=== PATIENT | female | born 1985 | race Caucasian/White ===

== ENCOUNTER 2016-11-23 06:13 | Emergency (ER) | payer MEDICAID ==
[2016-11-23] MEDS ORDERED: Sodium Chloride 0.9% 1,000 ML IV ONE (06:19)
[2016-11-23] MEDS ORDERED: HYDROmorphone 1 MG/ML Syringe IVPUSH ONE ×3 (06:23→08:26)
[2016-11-23] MEDS ORDERED: Ondansetron 4 MG/2 ML SDV IV ONE ×2 (06:28→08:27)
--- NOTE | 2016-11-23 06:30 | EDM.PDOC ---
<Aurea Gaspar - Last Filed: 11/23/16 06:41> ED HPI GENERAL MEDICAL PROBLEM - General Chief Complaint: Abdominal Pain Stated Complaint: SEVERE ABD PAIN, VOMITING Time Seen by Provider: 11/23/16 06:15 Source of Information: Reports: Patient History Limitations: Reports: No Limitations - History of Present Illness INITIAL COMMENTS - FREE TEXT/NARRATIVE: c/o severe RLQ pain starting at 10pm. Has had vomiting and diarrhea. pain similar to when had ruptured cyst also on right Duration: Hour(s): Location: Reports: Abdomen, Pelvis Right Lower Abdomen Pain Score (Numeric/FACES): 9 - Related Data Allergies Allergy/AdvReac Type Severity Reaction Status Date / Time codeine Allergy Nausea and Verified 11/23/16 06:26 Vomiting morphine Allergy Rash Verified 11/23/16 06:26 Home Meds: Home Meds ALPRAZolam [Xanax] 0.25 mg PO BID 09/01/15 [History] Acetaminophen/oxyCODONE [Percocet 325-5 MG] 1 tab PO ASDIRECTED 09/01/15 [ History] Past Medical History Cardiovascular History: Reports: Angina [employer] History: Reports: Musculoskeletal History: Reports: Back Pain, Chronic Psychiatric History: Reports: Bipolar, Depression, Other (See Below) Other Psychiatric History: insomtic Social & Family History - Family History Family Medical History: Noncontributory - Tobacco Use Smoking Status *Q: Former Smoker Years of Tobacco use: 10 Packs/Tins Daily: 1 Used Tobacco, but Quit: Yes Month Tobacco Last Used: 03/03 Second Hand Smoke Exposure: No - Alcohol Use Days Per Week of Alcohol Use: 0 - Recreational Drug Use Recreational Drug Use: No Drug Use in Last 12 Months: Yes Recreational Drug Type: Reports: Marijuana/Hashish - Living Situation & Occupation Living situation: Reports: , with Family ED ROS GENERAL - Review of Systems Review Of Systems: See Below HEENT: Reports: No Symptoms Respiratory: Reports: No Symptoms Cardiovascular: Reports: No Symptoms GI/Abdominal: Reports: Abdominal Pain, Diarrhea, Nausea, Vomiting : Reports: No Symptoms Musculoskeletal: Reports: No Symptoms Skin: Reports: No Symptoms Neurological: Reports: No Symptoms Psychiatric: Reports: No Symptoms Hematologic/Lymphatic: Reports: No Symptoms Immunologic: Reports: No Symptoms ED EXAM, GI/ABD - Physical Exam Exam: See Below Exam Limited By: No Limitations General Appearance: Alert, Moderate Distress Eyes: Bilateral: Normal Appearance Ears: Normal External Exam, Normal Canal Nose: Normal Inspection Throat/Mouth: Normal Inspection, Normal Oropharynx Head: Atraumatic, Normocephalic Neck: Normal Inspection, Supple, Full Range of Motion Respiratory/Chest: No Respiratory Distress, Lungs Clear, Normal Breath Sounds Cardiovascular: Normal Peripheral Pulses, Regular Rate, Rhythm, No Edema GI/Abdominal Exam: Normal Bowel Sounds, Soft, Non-Tender, Pelvis Stable, Tender (RLQ). No: Rebound Back Exam: Normal Inspection, Full Range of Motion Extremities: Normal Inspection, Normal Range of Motion Neurological: Alert, Oriented, CN II-XII Intact, Normal Cognition, Normal Gait Psychiatric: Normal Affect Skin Exam: Warm, Dry, Intact, Normal Color, No Rash, Cool Course - Vital Signs Last Recorded V/S: Last Vital Signs Temp 36.6 C 11/23/16 08:05 Pulse 114 H 11/23/16 08:05 Resp 16 11/23/16 08:05 BP 148/89 H 11/23/16 08:05 Pulse Ox 99 11/23/16 08:05 - Orders/Labs/Meds Orders: Active Orders 24 hr Category Date Time Status Dicyclomine [Bentyl] Med 11/23/16 08:26 Once 20 mg IM ONETIME ONE HYDROmorphone [Dilaudid] Med 11/23/16 08:26 Once 1 mg IVPUSH ONETIME ONE Ondansetron [Zofran] Med 11/23/16 08:27 Once 4 mg IV ONETIME ONE Labs: Laboratory Tests 11/23/16 11/23/16 11/23/16 Range/Units 06:20 06:20 06:20 WBC 12.5 H (5.0-10.0) 10^3/uL RBC 4.69 (4.2-5.4) 10^6/uL Hgb 14.9 (12.0-16.0) g/dL Hct 44.1 (37.0-47.0) % MCV 94.0 (80-100) fL MCH 31.8 (27.0-34.0) pg MCHC 33.8 (33.0-35.0) g/dL Plt Count 278 (150-450) 10^3/uL Neut % (Auto) 82.4 H (42.2-75.2) % Lymph % (Auto) 10.4 L (20.5-50.1) % [place] % (Auto) 5.6 (2-8) % Eos % (Auto) 1.4 (1.0-3.0) % Baso % (Auto) 0.2 (0.0-1.0) % Sodium 139 (135-145) mmol/L Potassium 3.6 (3.6-5.0) mmol/L Chloride 108 (101-111) mmol/L Carbon Dioxide 17.0 L (21.0-31.0) mmol/L Anion Gap 17.6 BUN 16 (7-18) mg/dL Creatinine 0.7 (0.6-1.3) mg/dL Est Cr Clr Drug Dosing TNP Estimated GFR (MDRD) > 60 BUN/Creatinine Ratio 22.85 Glucose 109 H (74-105) mg/dL Calcium 9.5 (8.4-10.2) mg/dl Total Bilirubin 1.7 H (0.2-1.0) mg/dL AST 20 (10-42) IU/L ALT 14 (10-60) IU/L Alkaline Phosphatase 59 (42-121) IU/L C-Reactive Protein < 0.5 (0.0-1.3) mg/dL Total Protein 8.3 H (6.7-8.2) g/dl Albumin 4.9 (3.2-5.5) g/dl Globulin 3.4 Albumin/Globulin Ratio 1.44 Amylase 48 (28-100) U/L Lipase 27 (22-51) U/L HCG, Qual Negative Urine Color (YELLOW) Urine Appearance (CLEAR) Urine pH (5.0-9.0) Ur Specific [place] (1.005-1.030) Urine Protein (NEGATIVE) Urine Glucose (UA) (NEGATIVE) Urine Ketones (NEGATIVE) Urine Occult Blood (NEGATIVE) Urine Nitrite (NEGATIVE) Urine Bilirubin (NEGATIVE) Urine Urobilinogen (0.2-1.0) mg/dL Ur Leukocyte Esterase (NEGATIVE) Urine RBC /HPF Urine WBC (0-5/HPF) /HPF Ur Epithelial Cells /HPF Urine Bacteria (0-FEW/HPF) /HPF Urine Mucus /LPF 11/23/16 Range/Units 07:00 WBC (5.0-10.0) 10^3/uL RBC (4.2-5.4) 10^6/uL Hgb (12.0-16.0) g/dL Hct (37.0-47.0) % MCV (80-100) fL MCH (27.0-34.0) pg MCHC (33.0-35.0) g/dL Plt Count (150-450) 10^3/uL Neut % (Auto) (42.2-75.2) % Lymph % (Auto) (20.5-50.1) % [place] % (Auto) (2-8) % Eos % (Auto) (1.0-3.0) % Baso % (Auto) (0.0-1.0) % Sodium (135-145) mmol/L Potassium (3.6-5.0) mmol/L Chloride (101-111) mmol/L Carbon Dioxide (21.0-31.0) mmol/L Anion Gap BUN (7-18) mg/dL Creatinine (0.6-1.3) mg/dL Est Cr Clr Drug Dosing Estimated GFR (MDRD) BUN/Creatinine Ratio Glucose (74-105) mg/dL Calcium (8.4-10.2) mg/dl Total Bilirubin (0.2-1.0) mg/dL AST (10-42) IU/L ALT (10-60) IU/L Alkaline Phosphatase (42-121) IU/L C-Reactive Protein (0.0-1.3) mg/dL Total Protein (6.7-8.2) g/dl Albumin (3.2-5.5) g/dl Globulin Albumin/Globulin Ratio Amylase (28-100) U/L Lipase (22-51) U/L HCG, Qual Urine Color Yellow (YELLOW) Urine Appearance Clear (CLEAR) Urine pH 5.5 (5.0-9.0) Ur Specific [place] <= 1.005 (1.005-1.030) Urine Protein Negative (NEGATIVE) Urine Glucose (UA) Negative (NEGATIVE) Urine Ketones Negative (NEGATIVE) Urine Occult Blood Trace-lysed H (NEGATIVE) Urine Nitrite Negative (NEGATIVE) Urine Bilirubin Negative (NEGATIVE) Urine Urobilinogen 0.2 (0.2-1.0) mg/dL Ur Leukocyte Esterase Negative (NEGATIVE) Urine RBC 0-5 /HPF Urine WBC 0-5 (0-5/HPF) /HPF Ur Epithelial Cells Occasional /HPF Urine Bacteria Rare (0-FEW/HPF) /HPF Urine Mucus Not seen /LPF Meds: Medications Discontinued Medications Generic Name Dose Route Start Last Admin Trade Name Tiffany PRN Reason Stop Dose Admin Hydromorphone HCl 1 mg 11/23/16 06:23 11/23/16 06:26 Dilaudid IVPUSH 11/23/16 06:24 1 mg ONETIME ONE Administration Hydromorphone HCl 1 mg 11/23/16 06:40 11/23/16 06:54 Dilaudid IVPUSH 11/23/16 06:41 1 mg ONETIME ONE Administration Sodium Chloride 1,000 mls @ 999 mls/hr 11/23/16 06:19 11/23/16 06:26 Normal Saline IV 11/23/16 07:19 999 mls/hr .BOLUS ONE Administration Iopamidol 75 ml 11/23/16 06:39 Isovue-300 (61%) IVPUSH 11/23/16 06:40 ONETIME ONE Ondansetron HCl 4 mg 11/23/16 06:28 11/23/16 06:31 Zofran IV 11/23/16 06:29 4 mg ONETIME ONE Administration Departure - Departure Disposition: Home, Self-Care 01 Clinical Impression: Gastroenteritis Abdominal pain Qualifiers: Abdominal location: lower abdomen, unspecified Qualified Code(s): R10.30 - Lower abdominal pain, unspecified - Discharge Information Instructions: Viral Gastroenteritis, Adult, [id number] Forms: ED Department Discharge Additional Instructions: Clear liquid diet until nausea and vomiting resolve, then advance to soft bland diet as tolerated. Rx: Phenergan 25mg *Do not drive while under the influence of this medication. Rx: Dicyclomine 20mg *Do not drive while under the influence of this medication. Follow up in clinic with your doctor if not improving in 3 days. - My Orders Last 24 Hours: My Active Orders 11/23/16 08:26 Dicyclomine [Bentyl] 20 mg IM ONETIME ONE HYDROmorphone [Dilaudid] 1 mg IVPUSH ONETIME ONE 11/23/16 08:27 Ondansetron [Zofran] 4 mg IV ONETIME ONE - Assessment/Plan Last 24 Hours: My Active Orders 11/23/16 08:26 Dicyclomine [Bentyl] 20 mg IM ONETIME ONE HYDROmorphone [Dilaudid] 1 mg IVPUSH ONETIME ONE 11/23/16 08:27 Ondansetron [Zofran] 4 mg IV ONETIME ONE <Venkat Limon - Last Filed: 11/23/16 08:33> ED HPI GENERAL MEDICAL PROBLEM - History of Present Illness INITIAL COMMENTS - FREE TEXT/NARRATIVE: Assumed care of pt at 0700HR shift change with CT Abd/Pelvis pending. ED EXAM, GI/ABD - Physical Exam Text/Narrative:: No changes to exam as documented by Aurea ALBARADO for this encounter. Course - Radiology Interpretation Free Text/Narrative:: CT Abd/Pelvis: gastroenteritis, no other acute process, incidental findings as noted by Rad. report. Departure - Departure Time of Disposition: 08:30 Condition: Fair
[2016-11-23] MEDS ORDERED: Iopamidol 612 MG/ML 75 ML Bottle IVPUSH ONE (06:39)
[2016-11-23 06:47] LABS: CHLORIDE,CL 108 mmol/L (101-111); SODIUM,NA 139 mmol/L (135-145)
[2016-11-23 08:05] VITALS: BP 148/89
--- NOTE | 2016-11-23 08:12 | CT ---
Clinical history: 31-year-old female "smoker" with history of previous , appendectomy and "r uptured ovarian cysts" who presents now with right lower quadrant pain. Scan technique: Volume acquisition of data emergency CT scan abdomen and pelvis obtained without oral contrast but during the intravenous administration of 75 cc nonionic Isovue contrast (3 cc/s via inj milad) while the patient was lying supine on a Siemens multi slice scanner [place], [place]. All data archived in the PACS system for storage, reformatting and study. Interpretation: 1. Collapsed (empty) urinary bladder. Normal uterus anteverted in the midline. No adnexal mass lesion s or free pelvic fluid. 2. Normal gallbladder i.e. no signs of wall inflammation or intraluminal stones. Several tiny benign-appearing cysts scattered throughout the course of the liver. No intrahepatic rupinder id mass lesion or abnormal dilatation of the intra/extrahepatic biliary ducts. 3. Fluid-filled loops of small intestine suggesting gastroenteritis. No abdominal or pelvic mass lesi on, retroperitoneal lymphadenopathy, signs of mechanical bowel obstruction, ascites or free intraperi toneal air. Normal caliber aorta. 4. Symmetric normal reniform size axis and configuration. No sign of renal cortical mass lesion, neph rolithiasis or obstruction. 5. Stomach, spleen, pancreas and adrenal glands unremarkable. Normal lumbar spine and bony pelvis. 6. Lung bases clear. CONCLUSION: Possible gastroenteritis. Tiny hepatic cysts. (Reported "appendectomy") Exam otherwise un remarkable.
[2016-11-23] MEDS ORDERED: Dicyclomine 20 MG/2 ML SDV IM ONE (08:26)
== END 2016-11-23 08:56 | disposition home or self-care (01) ==
LOC: DL.ED 06:13
DX: K52.9 Noninfective gastroenteritis and colitis, unspecified (principal); F31.9 Bipolar disorder, unspecified; Z87.891 Personal history of nicotine dependence; Z88.5 Allergy status to narcotic agent; Z79.899 Other long term (current) drug therapy
CPT/HCPCS: 36415; 74177; 80053; 81001; 82150; 83690; 84703; 85025; 86140; 96361; 96372; 96374; 96375; 96376; 99284; J0500; J1170; J2405; J7030; Q9967

== ENCOUNTER 2017-05-07 10:23 | Emergency (ER) | payer MEDICAID ==
--- NOTE | 2017-05-07 11:08 | EDM.PDOC ---
ED HPI GENERAL MEDICAL PROBLEM - General Chief Complaint: Back Pain or Injury Stated Complaint: IN BY AMBULANCE Time Seen by Provider: 05/07/17 11:07 Source of Information: Reports: Patient History Limitations: Reports: No Limitations - History of Present Illness INITIAL COMMENTS - FREE TEXT/NARRATIVE: patient is brought in by ambulance. She complains of acute onset of upper back pain with numbness bilateral hands. She indicates that she fell 2 weeks ago. Denies any recent fall the past couple days. Patient called EMS and was transferred here by ambulance. She complains of significant pain throughout her upper back. She complains of numbness to her entire upper extremity bilaterally. She denies chest pain shortness of breath. Denies fever chills or night sweats. Denies abdominal pain. Patient recently altered a prescription to obtain narcotics sooner than the date of the prescription Onset: Today, Sudden Duration: Hour(s):, Constant Quality: Reports: Ache, Sharp, Stabbing Severity: Severe Worsens with: Reports: Movement Back Pain Score (Numeric/FACES): 10 - Related Data Allergies Allergy/AdvReac Type Severity Reaction Status Date / Time codeine Allergy Nausea and Verified 05/07/17 10:17 Vomiting ketorolac [From Toradol] Allergy Hives Verified 05/07/17 10:17 morphine Allergy Rash Verified 05/07/17 10:17 pregabalin [From Lyrica] Allergy Hives Verified 05/07/17 10:17 Home Meds: Home Meds Acetaminophen/oxyCODONE [Percocet 325-5 MG] 1 tab PO Q6H 09/01/15 [History] Escitalopram [Lexapro] 10 mg PO BEDTIME 05/07/17 [History] Gabapentin [Neurontin] 300 mg PO TID 05/07/17 [History] clonazePAM [Klonopin] 0.25 mg PO BEDTIME 05/07/17 [History] Past Medical History Cardiovascular History: Reports: Angina [employer] History: Reports: Other OB/BYN History: Bilateral tubal ligation Musculoskeletal History: Reports: Back Pain, Chronic Other Musculoskeletal History: Spinal Stenosis Psychiatric History: Reports: Bipolar, Depression, Other (See Below) Other Psychiatric History: insomtic - Past Surgical History Musculoskeletal Surgical History: Reports: Other (See Below) Other Musculoskeletal Surgeries/Procedures:: Surgery to neck for fusion and removal of bone spur Social & Family History - Family History Family Medical History: Noncontributory - Tobacco Use Smoking Status *Q: Current Every Day Smoker Years of Tobacco use: 13 Packs/Tins Daily: 0.2 Used Tobacco, but Quit: Yes Month Tobacco Last Used: 03/03 Second Hand Smoke Exposure: No - Caffeine Use Caffeine Use: Reports: Soda - Alcohol Use Days Per Week of Alcohol Use: 0 - Recreational Drug Use Recreational Drug Use: No Drug Use in Last 12 Months: Yes Recreational Drug Type: Reports: Marijuana/Hashish - Living Situation & Occupation Living situation: Reports: , with Family ED ROS GENERAL - Review of Systems Review Of Systems: See Below Constitutional: Reports: Weakness. Denies: Diaphoresis HEENT: Reports: No Symptoms Respiratory: Reports: No Symptoms Cardiovascular: Reports: No Symptoms Endocrine: Reports: No Symptoms GI/Abdominal: Reports: No Symptoms : Reports: No Symptoms Musculoskeletal: Reports: Neck Pain, Shoulder Pain, Arm Pain, Back Pain, Hand Pain Skin: Reports: No Symptoms Neurological: Reports: Numbness, Paresthesia, Tingling Psychiatric: Reports: Anxiety Hematologic/Lymphatic: Reports: No Symptoms Immunologic: Reports: No Symptoms ED EXAM,LOWER BACK PAIN/INJURY - Physical Exam Exam: See Below Exam Limited By: No Limitations General Appearance: Anxious, Mild Distress Head: Atraumatic, Normocephalic Neck: Other (Right side cervical neck scar) Respiratory/Chest: No Respiratory Distress, Lungs Clear Cardiovascular: Normal Peripheral Pulses, No Edema Extremities: Other (Patient complains of weakness during the exam. She is unable to do a normal time checker bilateral extremity. She has some tenderness to palpation of the trapezius bilaterally. She complains of pain initiating biceps and triceps movement. Numbness to palpation fingers 1 through 5) Neurological: Alert, CN II-XII Intact, Other (Pain to palpation to the trapezius and cervical neck muscles. Limited rotation and flexion.) Psychiatric: Anxious, Tearful Skin Exam: Warm, Dry Lymphatic: No Adenopathy Course - Vital Signs Last Recorded V/S: Last Vital Signs Temp 98.6 F 05/07/17 10:21 Pulse 64 05/07/17 12:05 Resp 16 05/07/17 12:05 BP 94/51 L 05/07/17 12:05 Pulse Ox 100 05/07/17 12:05 - Orders/Labs/Meds Labs: Laboratory Tests 05/07/17 05/07/17 05/07/17 Range/Units 12:17 13:45 13:45 WBC 11.7 H (5.0-10.0) 10^3/uL RBC 3.76 L (4.2-5.4) 10^6/uL Hgb 11.9 L D (12.0-16.0) g/dL Hct 36.0 L (37.0-47.0) % MCV 95.7 (80-100) fL MCH 31.6 (27.0-34.0) pg MCHC 33.1 (33.0-35.0) g/dL Plt Count 240 (150-450) 10^3/uL Neut % (Auto) 68.8 (42.2-75.2) % Lymph % (Auto) 24.4 (20.5-50.1) % [place] % (Auto) 4.8 (2-8) % Eos % (Auto) 1.7 (1.0-3.0) % Baso % (Auto) 0.3 (0.0-1.0) % ESR 5 (0-20) mm/hr Urine Color Yellow (YELLOW) Urine Appearance Cloudy (CLEAR) Urine pH 7.0 (5.0-9.0) Ur Specific [place] 1.015 (1.005-1.030) Urine Protein Negative (NEGATIVE) Urine Glucose (UA) Negative (NEGATIVE) Urine Ketones Negative (NEGATIVE) Urine Occult Blood Negative (NEGATIVE) Urine Nitrite Negative (NEGATIVE) Urine Bilirubin Negative (NEGATIVE) Urine Urobilinogen 0.2 (0.2-1.0) mg/dL Ur Leukocyte Esterase Negative (NEGATIVE) Urine RBC 0-5 /HPF Urine WBC 0-5 (0-5/HPF) /HPF Ur Epithelial Cells Moderate H /HPF Amorphous Sediment Many H (0/HPF) /HPF Urine Bacteria Few (0-FEW/HPF) /HPF Urine Mucus Few H /LPF Urine Opiates Screen Negative (NEGATIVE) Ur Oxycodone Screen Negative (NEGATIVE) Urine Methadone Screen Negative (NEGATIVE) Ur Barbiturates Screen Negative (NEGATIVE) U Tricyclic Antidepress Negative (NEGATIVE) Ur Phencyclidine Scrn Negative (NEGATIVE) Ur Amphetamine Screen Negative (NEGATIVE) U Methamphetamines Scrn Negative (NEGATIVE) Urine MDMA Screen Negative (NEGATIVE) U Benzodiazepines Scrn Positive H (NEGATIVE) Urine Cocaine Screen Negative (NEGATIVE) U Marijuana (THC) Screen Positive H (NEGATIVE) Meds: Medications Discontinued Medications Generic Name Dose Route Start Last Admin Trade Name Tiffany JONES Reason Stop Dose Admin Diazepam 5 mg 05/07/17 11:08 05/07/17 11:29 Valium IV 05/07/17 11:09 5 mg ONETIME ONE Administration Hydromorphone HCl 1 mg 05/07/17 12:11 05/07/17 12:18 Dilaudid IVPUSH 05/07/17 12:12 1 mg ONETIME ONE Administration Sodium Chloride 1,000 mls @ 125 mls/hr 05/07/17 11:15 05/07/17 11:21 Normal Saline IV 125 mls/hr ASDIRECTED [facility] Administration - Re-Assessments/Exams Free Text/Narrative Re-Assessment/Exam: Lab work and imaging is reviewed. Discussed differential diagnosis. Reviewed myofascial pain and trigger points. Discussed nonnarcotic medication treatments in addition to other pain medications 05/07/17 14:03 Free Text/Narrative Re-Assessment/Exam: Reexamination shows trigger points to the cervical neck and trapezius. Palpating reproduces symptoms. She has muscle spasm to the trapezius and cervical neck 05/07/17 14:06 Departure - Departure Time of Disposition: 15:06 Disposition: Home, Self-Care 01 Condition: Good Clinical Impression: Cervical neck pain with evidence of disc disease, Intractable pain, Myofascial pain, Trigger point of neck, Muscle spasm Thoracic back pain Qualifiers: Chronicity: acute Back pain laterality: midline Qualified Code(s): M54.6 - Pain in thoracic spine - Discharge Information Instructions: Muscle Cramps and Spasms, [id number], Myofascial Pain Syndrome and Fibromyalgia, Muscle Pain, Adult, Musculoskeletal Pain, Pain Medicine Instructions, [id number] Forms: ED Department Discharge Care Plan Goals: Follow-up with regular provider in the next 1-2 weeks. Utilize heat to the neck. Consider Theracane to help with trigger points. Review myofascial pain and trigger points. Call or return if problems questions or concerns
[2017-05-07] MEDS ORDERED: Sodium Chloride 0.9% 1,000 ML IV SCH (11:15)
[2017-05-07 12:06] VITALS: BP 94/51
[2017-05-07] MEDS ORDERED: HYDROmorphone 1 MG/ML Syringe IVPUSH ONE (12:11)
--- NOTE | 2017-05-07 12:30 | CR ---
Clinical history: 31-year-old female in the emergency department with "neck pain". Interpretation: AP lateral cervical spine films confirm previous anterior orthopedic lower cervical s desiree fusion i.e. prosthetic intervertebral disc anchored with screws anteriorly, between the C5 and C6 vertebral bodies. Decreased height of the C6 vertebral body and reversal of the usual lower cervical lordosis. Early uncinate spur formation C5-6 and C6-C7 levels. No sign of pathologic skeletal lesion, prevertebral soft tissue swelling, acute cervical fracture or spondylolisthesis. CONCLUSION: Postoperative and early arthritic changes lower cervical spine. No fracture or dislocatio n.
== END 2017-05-07 14:16 | disposition home or self-care (01) ==
LOC: DL.ED 10:23
DX: M62.830 Muscle spasm of back (principal); M50.90 Cervical disc disorder, unspecified, unspecified cervical region; M79.1 Myalgia; F31.9 Bipolar disorder, unspecified; F17.210 Nicotine dependence, cigarettes, uncomplicated; Z98.1 Arthrodesis status; Z88.5 Allergy status to narcotic agent; Z88.6 Allergy status to analgesic agent; Z88.8 Allergy status to other drugs, medicaments and biological substances
CPT/HCPCS: 36415; 72040; 80305; 81001; 85025; 85651; 96361; 96374; 96375; 99284; J1170; J3360; J7030

== ENCOUNTER 2017-05-15 10:29 | Emergency (ER) | payer MEDICAID ==
--- NOTE | 2017-05-15 10:40 | EDM.PDOC ---
ED HPI GENERAL MEDICAL PROBLEM - General Chief Complaint: Neuro Symptoms/Deficits Stated Complaint: can't feel her arms [id number] Time Seen by Provider: 05/15/17 10:39 Source of Information: Reports: Patient, Old Records, RN, RN Notes Reviewed History Limitations: Reports: No Limitations - History of Present Illness INITIAL COMMENTS - FREE TEXT/NARRATIVE: Pt presents to the ER with c/o neck pain and numbness/tingling down both arms and states she is unable to move or grasp with her hands. Pt states she was seen here about 1 week ago and her treatment here helped her a lot. She states she is to be called at home tomorrow by Neurology in [place] to be set up with an appointment to see Dr. Koenig, whom she has seen in the past. Previous charts show she has had cervical spine surgery to remove spur and fuse, as well as altering narcotic scripts. Pt denies any new injury to the neck. Onset: Gradual Bilateral Arm Pain Score (Numeric/FACES): 10 - Related Data Allergies Allergy/AdvReac Type Severity Reaction Status Date / Time codeine Allergy Nausea and Verified 05/07/17 10:17 Vomiting ketorolac [From Toradol] Allergy Hives Verified 05/07/17 10:17 morphine Allergy Rash Verified 05/07/17 10:17 pregabalin [From Lyrica] Allergy Hives Verified 05/07/17 10:17 Home Meds: Home Meds Escitalopram [Lexapro] 10 mg PO BEDTIME 05/07/17 [History] Gabapentin [Neurontin] 300 mg PO TID 05/07/17 [History] clonazePAM [Klonopin] 0.25 mg PO BEDTIME 05/07/17 [History] Diazepam [Valium] 1 tab PO TID PRN 05/15/17 [History] Methocarbamol [Methocarbamol] 1 tab PO QID PRN 05/15/17 [History] fentaNYL [Duragesic] 1 patch TOP ASDIRECTED 05/15/17 [History] Past Medical History Cardiovascular History: Reports: Angina 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 OB/BYN History: Bilateral tubal ligation Musculoskeletal History: Reports: Back Pain, Chronic Other Musculoskeletal History: Spinal Stenosis Psychiatric History: Reports: Bipolar, Depression, Other (See Below) Other Psychiatric History: insomtic - Past Surgical History Musculoskeletal Surgical History: Reports: Other (See Below) Other Musculoskeletal Surgeries/Procedures:: Surgery to neck for fusion and removal of bone spur Social & Family History - Family History Family Medical History: Noncontributory - Tobacco Use Smoking Status *Q: Current Every Day Smoker Years of Tobacco use: 13 Packs/Tins Daily: 0.2 Used Tobacco, but Quit: Yes Month Tobacco Last Used: 03/03 Second Hand Smoke Exposure: No - Caffeine Use Caffeine Use: Reports: Soda - Alcohol Use Days Per Week of Alcohol Use: 0 - Recreational Drug Use Recreational Drug Use: No Drug Use in Last 12 Months: Yes Recreational Drug Type: Reports: Marijuana/Hashish - Living Situation & Occupation Living situation: Reports: , with Family ED ROS GENERAL - Review of Systems Review Of Systems: ROS reveals no pertinent complaints other than HPI. ED EXAM, UPPER BACK/NECK PAIN - Physical Exam Exam: See Below Exam Limited By: No Limitations General Appearance: Alert, WD/WN, Moderate Distress Eye Exam: Bilateral Eye: EOMI, Normal Inspection, PERRL Ears Exam: Normal External Exam, Hearing Grossly Normal Nose Exam: Normal Inspection Throat/Mouth Exam: Normal Inspection, Normal Voice, No Airway Compromise Head Exam: Atraumatic, Normocephalic Neck Exam: Limited Range of Motion, Muscle Spasm, Painful Range of Motion, Paraspinous Muscle Tender, Spinous Processes Tender, Stiff Neck, Tenderness, Tender Lateral, Tender Midline Nexus Criteria: Posterior, Midline Cervical Tenderness, Focal Neurological Deficit. No: Evidence of Intoxication, Altered Level of Consciousness, Painful Distraction Injuries Cardiovascular/Respiratory: Regular Rate, Rhythm, No M/R/G, Normal Peripheral Pulses, No JVD, Normal Breath Sounds, No Respiratory Distress GI/Abdominal: Normal Bowel Sounds, Soft, Non-Tender, No Organomegaly, No Distention, No Abnormal Bruit, No Mass (Female) Exam: Deferred Rectal (Female) Exam: Deferred Back Exam: Normal Inspection, Full Range of Motion Extremities: Non-Tender, No Pedal Edema, Normal Capillary Refill, Limited Range of Motion, Other (Hands and arms are rigid, pt states she cannot grasp with her hands. Hands are cool with good capillary refill. ) Neurologic: Alert, Oriented x 3, Other (Numbness/tingling to arms and hands bilaterally) Psychiatric: Anxious, Tearful Skin Exam: Normal Color, Warm/Dry Lymphatic: No Adenopathy Course - Vital Signs Last Recorded V/S: Last Vital Signs Temp 99.2 F 05/15/17 10:32 Pulse 114 H 05/15/17 10:32 Resp 20 05/15/17 10:32 BP 119/86 05/15/17 10:32 Pulse Ox 99 05/15/17 10:32 - Orders/Labs/Meds Meds: Medications Discontinued Medications Generic Name Dose Route Start Last Admin Trade Name Tiffany PRN Reason Stop Dose Admin Diazepam 5 mg 05/15/17 11:02 05/15/17 11:13 Valium. PO 05/15/17 11:03 5 mg ONETIME ONE Administration Hydromorphone HCl 1 mg 05/15/17 11:02 05/15/17 11:22 Dilaudid IVPUSH 05/15/17 11:03 Not Given ONETIME ONE Hydromorphone HCl 1 mg 05/15/17 11:02 05/15/17 11:13 Dilaudid IM 05/15/17 11:03 1 mg ONETIME ONE Administration Methylprednisolone Sodium Succinate 125 mg 05/15/17 11:05 05/15/17 11:14 Solu-Medrol IM 05/15/17 11:06 125 mg ONETIME ONE Administration Departure - Departure Time of Disposition: 11:47 Disposition: Home, Self-Care 01 Condition: Fair Clinical Impression: Weakness of hand, Limb weakness, Numbness, Cervical radiculopathy - Discharge Information Instructions: Cervical Radiculopathy, [id number] Forms: ED Department Discharge Additional Instructions: RX: Diazepam, Prednisone, Fentanyl patch Rest, no heavy lifting Follow up with Neuro tomorrow
[2017-05-15 10:50] VITALS: BP 119/86
[2017-05-15] MEDS ORDERED: HYDROmorphone 1 MG/ML Syringe IM ONE (11:02)
[2017-05-15] MEDS ORDERED: HYDROmorphone 1 MG/ML Syringe IVPUSH ONE (11:02)
[2017-05-15] MEDS ORDERED: Diazepam 5 MG Tab PO ONE (11:02)
[2017-05-15] MEDS ORDERED: methylPREDNISolone Sodium Succinate 125 MG/2 ML SDV IM ONE (11:05)
== END 2017-05-15 12:05 | disposition home or self-care (01) ==
LOC: DL.ED 10:29
DX: M54.12 Radiculopathy, cervical region (principal); F31.9 Bipolar disorder, unspecified; F17.210 Nicotine dependence, cigarettes, uncomplicated; Z98.1 Arthrodesis status; Z88.5 Allergy status to narcotic agent; Z88.6 Allergy status to analgesic agent; Z88.8 Allergy status to other drugs, medicaments and biological substances
CPT/HCPCS: 96372; 99283; A9270; J1170; J2930

== ENCOUNTER 2017-05-24 09:43 | Emergency (ER) | payer MEDICAID | END 2017-05-24 11:09 | disposition left against medical advice (07) | LOC: DL.ED 09:43 | DX: Z53.21 Procedure and treatment not carried out due to patient leaving prior to being seen by health care provider (principal) ==

== ENCOUNTER 2017-11-07 21:39 | Emergency (ER) | payer SELFPAY ==
[2017-11-07] MEDS ORDERED: Promethazine 25 MG/ML SDV IM ONE (22:29)
[2017-11-07] MEDS ORDERED: Lidocaine 1% with EPINEPHrine 1:100,000 20 ML MDV INJECT ONE (22:31)
[2017-11-07] MEDS ORDERED: Sodium Bicarbonate 8.4% 50 MEQ/50 ML SDV STA (22:31)
--- NOTE | 2017-11-07 23:15 | EDM.PDOC ---
ED HPI GENERAL MEDICAL PROBLEM - General Chief Complaint: Skin Complaint Stated Complaint: SOMETHING ON GROIN Time Seen by Provider: 11/07/17 21:50 Source of Information: Reports: Patient History Limitations: Reports: No Limitations - History of Present Illness INITIAL COMMENTS - FREE TEXT/NARRATIVE: patient comes emergency Department today with complaints of a painful area in her groin. Over the past couple of days she has developed a small lump in her groin that has become quite painful. It initially was very red and swollen and she tried to "pop it". It is slowly gotten somewhat bigger and painful. She has no vaginal discharge or dyspareunia. Treatments SEO SPECIALIST: Reports: Acetaminophen, NSAIDS Right Groin Pain Score (Numeric/FACES): 6 - Related Data Allergies Allergy/AdvReac Type Severity Reaction Status Date / Time codeine Allergy Nausea and Verified 11/07/17 21:58 Vomiting ketorolac [From Toradol] Allergy Hives Verified 11/07/17 21:58 morphine Allergy Rash Verified 11/07/17 21:58 pregabalin [From Lyrica] Allergy Hives Verified 11/07/17 21:58 Home Meds: Home Meds Escitalopram [Lexapro] 10 mg PO BEDTIME 05/07/17 [History] Gabapentin [Neurontin] 300 mg PO TID 05/07/17 [History] clonazePAM [Klonopin] 0.25 mg PO BEDTIME 05/07/17 [History] Methocarbamol 1 tab PO QID PRN 05/15/17 [History] diazePAM [Valium] 1 tab PO TID PRN 05/15/17 [History] fentaNYL [Duragesic] 1 patch TOP ASDIRECTED 05/15/17 [History] Past Medical History Cardiovascular History: Reports: Angina 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: Bilateral tubal ligation Musculoskeletal History: Reports: Back Pain, Chronic Other Musculoskeletal History: Spinal Stenosis Psychiatric History: Reports: Bipolar, Depression, Other (See Below) Other Psychiatric History: insomtic - Past Surgical History Musculoskeletal Surgical History: Reports: Other (See Below) Other Musculoskeletal Surgeries/Procedures:: Surgery to neck for fusion and removal of bone spur Social & Family History - Family History Family Medical History: Noncontributory - Tobacco Use Smoking Status *Q: Current Every Day Smoker Years of Tobacco use: 14 Packs/Tins Daily: 2 - Caffeine Use Caffeine Use: Reports: Soda Caffeine Use Comment: Mountain dew - Recreational Drug Use Recreational Drug Use: No - Living Situation & Occupation Living situation: Reports: , with Family ED ROS GENERAL - Review of Systems Review Of Systems: ROS reveals no pertinent complaints other than HPI. ED EXAM, SKIN/RASH Exam: See Below Text/Narrative:: she appears minimally uncomfortable. (Female) Exam: Normal External Exam (normal external exam completed with Karley FLEMING in the room. Just to the right of the labia is approximately 1 inch away there is a small area about the size of a quarter that is erythematous indurated and quite swollen. There is no breaks in the skin. It is fluctuant in nature in the central region.) Rectal (Female) Exam: Deferred Back Exam: Normal Inspection Extremities: Normal Inspection Neurological: Alert, Oriented Psychiatric: Normal Affect, Normal Mood ED SKIN PROCEDURES - I&D Site: right groin Skin Prep: Providone-Iodine (Betadine) Local Anesthesia: Lidocaine: 1% Plain Local Anesthetic Volume: 3cc Area Incised With: 11 Blade Drainage: Clear, Bloody, Small Amount Probed to Break Up Loculations: Yes Complications: No Course - Vital Signs Last Recorded V/S: Last Vital Signs Temp 36.5 C 11/07/17 23:42 Pulse 86 11/07/17 23:42 Resp 17 11/07/17 23:42 BP 124/78 11/07/17 23:42 Pulse Ox 100 11/07/17 23:42 - Orders/Labs/Meds Orders: Active Orders 24 hr Category Date Time Status CULTURE WOUND [RM] Stat Lab 11/07/17 23:27 Received Meds: Medications Discontinued Medications Generic Name Dose Route Start Last Admin Trade Name Tiffany PRN Reason Stop Dose Admin Lidocaine/Epinephrine 20 ml 11/07/17 22:31 11/07/17 23:12 Xylocaine 1% With Epinephrine 1:100,000 INJECT 11/07/17 22:32 1 ml ONETIME ONE Administration Promethazine HCl 25 mg 11/07/17 22:29 11/07/17 22:35 Phenergan IM 11/07/17 22:30 25 mg ONETIME ONE Administration Sodium Bicarbonate 5 meq 11/07/17 22:31 11/07/17 23:11 Sodium Bicarbonate 8.4% .XX 11/07/17 22:32 5 meq NOW STA Administration Trimethoprim/Sulfamethoxazole 1 tab 11/07/17 23:33 11/07/17 23:42 Septra Ds PO 11/07/17 23:34 1 tab ONETIME ONE Administration - Re-Assessments/Exams Free Text/Narrative Re-Assessment/Exam: 11/08/17 19:36 wound culture was obtained from the area. The patient did have quite a bit of improvement of pain. Bactrim for infection. I also do not want the patient to Chantal trim her perineal area until it resolves. Also when she goes back to grooming her perineal area she is not to use a straight razor. Departure - Departure Time of Disposition: 23:37 Disposition: Home, Self-Care 01 Clinical Impression: Abscess - Discharge Information Instructions: Skin Abscess, [id number], Incision and Drainage, Care After Forms: ED Department Discharge Additional Instructions: Tylenol and or Ibuprofen as needed for pain. Warm packs to the area 4-5 times a day. Allow to drain with a dressing and bandage in place. Or sitz bath with Epsom salts and warm water. Bactrim 1 tablet twice daily for the next 7 days. RX given to the patient. First dose given in the ED. Return to the ED if new or worsening symptoms. Follow up with primary care in the next 4-6 days if not improving sooner if worse. - My Orders Last 24 Hours: My Active Orders 11/07/17 23:27 CULTURE WOUND [RM] Stat - Assessment/Plan Last 24 Hours: My Active Orders 11/07/17 23:27 CULTURE WOUND [RM] Stat Assessment:: Right groin abscess. Incision and drainage. Plan: Tylenol and or Ibuprofen as needed for pain. Warm packs to the area 4-5 times a day. Allow to drain with a dressing and bandage in place. Or sitz bath with Epsom salts and warm water. Bactrim 1 tablet twice daily for the next 7 days. RX given to the patient. First dose given in the ED. Return to the ED if new or worsening symptoms. Follow up with primary care in the next 4-6 days if not improving sooner if worse.
[2017-11-07] MEDS ORDERED: Sulfamethoxazole/Trimethoprim 800-160 MG Tab PO ONE (23:33)
[2017-11-08 00:03] VITALS: BP 124/78
== END 2017-11-08 00:02 | disposition home or self-care (01) ==
LOC: DL.ED 21:39
DX: L02.214 Cutaneous abscess of groin (principal); F17.210 Nicotine dependence, cigarettes, uncomplicated; Z88.5 Allergy status to narcotic agent; Z88.6 Allergy status to analgesic agent; Z88.8 Allergy status to other drugs, medicaments and biological substances
CPT/HCPCS: 10060; 87070; 87077; 87186; 99283; A9270; J2550

== ENCOUNTER 2017-11-17 13:04 | Emergency (ER) | payer SELFPAY ==
[2017-11-17 13:14] VITALS: BP 117/80
--- NOTE | 2017-11-17 14:44 | CR ---
Clinical history: 32-year-old female left chest pain. Interpretation: PA chest and oblique left rib detail films (BB marker skin surface) unremarkable. Normal cardiac silhouette and no cephalization of flow, signs of alveolar edema or dependent pleural effusion. No rib fracture, lung contusion, atelectasis, pleural effusion or pneumothorax. No lung mass or hilar lymphadenopathy. No focal lobar pneumonia.
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
== END 2017-11-17 15:09 | disposition home or self-care (01) ==
LOC: DL.ED 13:04
DX: S20.212A Contusion of left front wall of thorax, initial encounter (principal); F17.210 Nicotine dependence, cigarettes, uncomplicated; Z79.899 Other long term (current) drug therapy; Z88.5 Allergy status to narcotic agent; Z88.8 Allergy status to other drugs, medicaments and biological substances; W50.1XXA Accidental kick by another person, initial encounter; Y93.72 Activity, wrestling
CPT/HCPCS: 71101-LT; 80305-QW; 81001; 81025; 99284

== ENCOUNTER 2018-05-26 20:13 | Emergency (ER) | payer SELFPAY ==
[2018-05-26 19:48] VITALS: BP 160/99
[~2018-05-26 20:13] MED LIST: diphenhydrAMINE 50 MG/ML SDV IVPUSH ONE
[2018-05-26] MEDS ORDERED: HYDROmorphone 1 MG/ML Syringe IVPUSH ONE (20:16)
[2018-05-26 20:17] LABS: ANION GAP 12.8; CHLORIDE,CL 111 mmol/L (101-111); SODIUM,NA 140 mmol/L (135-145)
--- NOTE | 2018-05-26 20:18 | EDM.PDOC ---
ED HPI GENERAL MEDICAL PROBLEM - General Stated Complaint: COMING BY AMBULANCE Time Seen by Provider: 05/26/18 20:05 Source of Information: Reports: Patient History Limitations: Reports: No Limitations - History of Present Illness INITIAL COMMENTS - FREE TEXT/NARRATIVE: This 33 yo female patient was brought to the ED by [facility] with an intercept from [facility] due to acute substernal chest pain and pain in her left arm. The patient reports she was "just standing in the kitchen" when her pain started. The patient reports she has a history of anxiety and has had neck surgery as well as a tubal ligation. The patient was given given aspirin, 3 doses of nitro and a dose of morphine by EMS prior to her arrival. The patient reports she still has a pressure in her chest with increased pain in her left arm and shoulder. Onset: Today Duration: Constant Location: Reports: Chest, Upper Extremity, Left Quality: Reports: Ache, Pressure, Sharp Severity: Severe Improves with: Reports: None Worsens with: Reports: None Associated Symptoms: Reports: No Other Symptoms Treatments [employer]SULTANT: Reports: Aspirin, Nitroglycerin, Other Medication(s) (morphine ( EMS)) Mid-Sternal Chest Pain Score (Numeric/FACES): 6 - Related Data Allergies Allergy/AdvReac Type Severity Reaction Status Date / Time codeine Allergy Nausea and Verified 05/26/18 20:47 Vomiting ketorolac [From Toradol] Allergy Hives Verified 05/26/18 20:47 morphine Allergy Rash Verified 05/26/18 20:47 pregabalin [From Lyrica] Allergy Hives Verified 05/26/18 20:47 Home Meds: Home Meds Escitalopram [Lexapro] 10 mg PO BEDTIME 05/07/17 [History] Gabapentin [Neurontin] 300 mg PO TID 05/07/17 [History] clonazePAM [Klonopin] 0.25 mg PO BEDTIME 05/07/17 [History] Methocarbamol 1 tab PO QID PRN 05/15/17 [History] diazePAM [Valium] 1 tab PO TID PRN 05/15/17 [History] fentaNYL [Duragesic] 1 patch TOP ASDIRECTED 05/15/17 [History] Past Medical History Cardiovascular History: Reports: Angina CABLE REELER History: Reports: Other CABLE REELER History: Bilateral tubal ligation Musculoskeletal History: Reports: Back Pain, Chronic Other Musculoskeletal History: Spinal Stenosis Psychiatric History: Reports: Bipolar, Depression, Other (See Below) Other Psychiatric History: insomtic - Past Surgical History Female Surgical History: Reports: Tubal Ligation Neurological Surgical History: Reports: Other (See Below) Other Neurological Surgeries/Procedures: neck fusion Musculoskeletal Surgical History: Reports: Other (See Below) Other Musculoskeletal Surgeries/Procedures:: Surgery to neck for fusion and removal of bone spur Social & Family History - Family History Family Medical History: Noncontributory - Tobacco Use Smoking Status *Q: Current Every Day Smoker Years of Tobacco use: 15 Packs/Tins Daily: 0.2 - Caffeine Use Caffeine Use: Reports: Energy Drinks Caffeine Use Comment: Mountain dew - Recreational Drug Use Recreational Drug Use: No - Living Situation & Occupation Living situation: Reports: , with Family ED ROS GENERAL - Review of Systems Review Of Systems: ROS reveals no pertinent complaints other than HPI. ED EXAM, GENERAL - Physical Exam Exam: See Below Exam Limited By: No Limitations General Appearance: Alert, WD/WN, Moderate Distress, Thin Eye Exam: Bilateral Eye: EOMI, Normal Inspection, PERRL Ears: Normal External Exam, Normal Canal, Hearing Grossly Normal, Normal TMs Nose: Normal Inspection, Normal Mucosa, No Blood Throat/Mouth: Normal Inspection, Normal Lips, Normal Teeth, Normal Gums, Normal Oropharynx, Normal Voice, No Airway Compromise Head: Atraumatic, Normocephalic Neck: Normal Inspection, Supple, Non-Tender, Full Range of Motion Respiratory/Chest: No Respiratory Distress, Lungs Clear, Normal Breath Sounds, No Accessory Muscle Use, Chest Non-Tender Cardiovascular: Normal Peripheral Pulses, Regular Rate, Rhythm, No Edema, No Gallop, No JVD, No Murmur, No Rub GI/Abdominal: Normal Bowel Sounds, Soft, Non-Tender, No Organomegaly, No Distention, No Abnormal Bruit, No Mass (Female) Exam: Deferred Rectal (Female) Exam: Deferred Back Exam: Normal Inspection, Full Range of Motion, NT Extremities: Normal Range of Motion, No Pedal Edema, Normal Capillary Refill, Arm Pain (left arm pain) Neurological: Alert, Oriented, CN II-XII Intact, Normal Cognition, Normal Gait, Normal Reflexes, No Motor/Sensory Deficits Psychiatric: Anxious Skin Exam: Warm, Dry, Intact, Normal Color, No Rash Lymphatic: No Adenopathy Course - Vital Signs Last Recorded V/S: Last Vital Signs Temp 37.9 C 05/26/18 19:35 Pulse 94 05/26/18 19:35 Resp 22 H 05/26/18 19:35 BP 160/99 H 05/26/18 19:35 Pulse Ox 97 05/26/18 19:35 - Orders/Labs/Meds Orders: Active Orders 24 hr Category Date Time Status EKG Documentation Completion [RC] URGENT Care 05/26/18 19:35 Active Potassium Chloride [KCl 10 MEQ in Water 100 ML] 10 meq Med 05/26/18 22:16 Ordered Premix Bag 1 bag IV ONETIME Medication Orders Potassium Chloride 10 meq/ (Premix) 100 mls @ 100 mls/hr IV ONETIME ONE Stop: 05/26/18 23:15 Last Admin: 05/26/18 22:38 Dose: 100 mls/hr Labs: Laboratory Tests 05/26/18 05/26/18 05/26/18 Range/Units 19:50 19:50 19:50 WBC 8.5 (5.0-10.0) 10^3/uL RBC 4.28 (4.2-5.4) 10^6/uL Hgb 13.4 D (12.0-16.0) g/dL Hct 39.3 (37.0-47.0) % MCV 91.8 D (80-100) fL MCH 31.3 (27.0-34.0) pg MCHC 34.1 (33.0-35.0) g/dL Plt Count 243 (150-450) 10^3/uL Neut % (Auto) 61.5 (42.2-75.2) % Lymph % (Auto) 30.7 (20.5-50.1) % [place] % (Auto) 6.4 (2-8) % Eos % (Auto) 0.8 L (1.0-3.0) % Baso % (Auto) 0.6 (0.0-1.0) % PT 11.0 (9.0-12.0) SEC INR 1.1 (0.9-1.2) D-Dimer, Quantitative < 100 (0-400) ng/mL Sodium 140 (135-145) mmol/L Potassium 2.8 L (3.6-5.0) mmol/L Chloride 111 (101-111) mmol/L Carbon Dioxide 19.0 L (21.0-31.0) mmol/L Anion Gap 12.8 BUN 5 L (7-18) mg/dL Creatinine 0.6 (0.6-1.3) mg/dL Est Cr Clr Drug Dosing 99.24 mL/min Estimated GFR (MDRD) > 60 BUN/Creatinine Ratio 8.33 Glucose 88 (74-105) mg/dL Calcium 9.2 (8.4-10.2) mg/dl Total Bilirubin 0.9 (0.2-1.0) mg/dL AST 24 (10-42) IU/L ALT 11 (10-60) IU/L Alkaline Phosphatase 54 (42-121) IU/L Troponin I < 0.02 (0.00-0.02) ng/ml Total Protein 6.9 (6.7-8.2) g/dl Albumin 4.2 (3.2-5.5) g/dl Globulin 2.7 Albumin/Globulin Ratio 1.56 Urine Color (YELLOW) Urine Appearance (CLEAR) Urine pH (5.0-9.0) Ur Specific [place] (1.005-1.030) Urine Protein (NEGATIVE) Urine Glucose (UA) (NEGATIVE) Urine Ketones (NEGATIVE) Urine Occult Blood (NEGATIVE) Urine Nitrite (NEGATIVE) Urine Bilirubin (NEGATIVE) Urine Urobilinogen (0.2-1.0) mg/dL Ur Leukocyte Esterase (NEGATIVE) Urine RBC /HPF Urine WBC (0-5/HPF) /HPF Ur Epithelial Cells /HPF Urine Bacteria (0-FEW/HPF) /HPF Urine Opiates Screen (NEGATIVE) Ur Oxycodone Screen (NEGATIVE) Urine Methadone Screen (NEGATIVE) Ur Barbiturates Screen (NEGATIVE) U Tricyclic Antidepress (NEGATIVE) Ur Phencyclidine Scrn (NEGATIVE) Ur Amphetamine Screen (NEGATIVE) U Methamphetamines Scrn (NEGATIVE) Urine MDMA Screen (NEGATIVE) U Benzodiazepines Scrn (NEGATIVE) Urine Cocaine Screen (NEGATIVE) U Marijuana (THC) Screen (NEGATIVE) 05/26/18 05/26/18 Range/Units 22:24 22:24 WBC (5.0-10.0) 10^3/uL RBC (4.2-5.4) 10^6/uL Hgb (12.0-16.0) g/dL Hct (37.0-47.0) % MCV (80-100) fL MCH (27.0-34.0) pg MCHC (33.0-35.0) g/dL Plt Count (150-450) 10^3/uL Neut % (Auto) (42.2-75.2) % Lymph % (Auto) (20.5-50.1) % [place] % (Auto) (2-8) % Eos % (Auto) (1.0-3.0) % Baso % (Auto) (0.0-1.0) % PT (9.0-12.0) SEC INR (0.9-1.2) D-Dimer, Quantitative (0-400) ng/mL Sodium (135-145) mmol/L Potassium (3.6-5.0) mmol/L Chloride (101-111) mmol/L Carbon Dioxide (21.0-31.0) mmol/L Anion Gap BUN (7-18) mg/dL Creatinine (0.6-1.3) mg/dL Est Cr Clr Drug Dosing mL/min Estimated GFR (MDRD) BUN/Creatinine Ratio Glucose (74-105) mg/dL Calcium (8.4-10.2) mg/dl Total Bilirubin (0.2-1.0) mg/dL AST (10-42) IU/L ALT (10-60) IU/L Alkaline Phosphatase (42-121) IU/L Troponin I (0.00-0.02) ng/ml Total Protein (6.7-8.2) g/dl Albumin (3.2-5.5) g/dl Globulin Albumin/Globulin Ratio Urine Color Yellow (YELLOW) Urine Appearance Clear (CLEAR) Urine pH 6.0 (5.0-9.0) Ur Specific [place] 1.020 (1.005-1.030) Urine Protein Trace H (NEGATIVE) Urine Glucose (UA) Negative (NEGATIVE) Urine Ketones Negative (NEGATIVE) Urine Occult Blood Negative (NEGATIVE) Urine Nitrite Negative (NEGATIVE) Urine Bilirubin Negative (NEGATIVE) Urine Urobilinogen 0.2 (0.2-1.0) mg/dL Ur Leukocyte Esterase Negative (NEGATIVE) Urine RBC 0-5 /HPF Urine WBC 0-5 (0-5/HPF) /HPF Ur Epithelial Cells Moderate H /HPF Urine Bacteria Moderate H (0-FEW/HPF) /HPF Urine Opiates Screen Positive H (NEGATIVE) Ur Oxycodone Screen Positive H (NEGATIVE) Urine Methadone Screen Negative (NEGATIVE) Ur Barbiturates Screen Negative (NEGATIVE) U Tricyclic Antidepress Negative (NEGATIVE) Ur Phencyclidine Scrn Negative (NEGATIVE) Ur Amphetamine Screen Positive H (NEGATIVE) U Methamphetamines Scrn Positive H (NEGATIVE) Urine MDMA Screen Negative (NEGATIVE) U Benzodiazepines Scrn Negative (NEGATIVE) Urine Cocaine Screen Negative (NEGATIVE) U Marijuana (THC) Screen Positive H (NEGATIVE) Meds: Medications Generic Name Dose Route Start Last Admin Trade Name Freq PRN Reason Stop Dose Admin Potassium Chloride 10 meq/ 100 mls @ 100 mls/hr 05/26/18 22:16 05/26/18 22:38 Premix IV 05/26/18 23:15 100 mls/hr ONETIME ONE Administration Discontinued Medications Generic Name Dose Route Start Last Admin Trade Name Freq PRN Reason Stop Dose Admin Al Hydroxide/Mg Hydroxide 30 ml 05/26/18 20:41 05/26/18 20:57 Gi Cocktail PO 05/26/18 20:42 30 ml ONETIME ONE Administration Diphenhydramine HCl 50 mg 05/26/18 19:39 05/26/18 19:53 Benadryl IVPUSH 05/26/18 19:40 50 mg ONETIME ONE Administration Hydromorphone HCl 0.5 mg 05/26/18 20:16 05/26/18 20:23 Dilaudid IVPUSH 05/26/18 20:17 0.5 mg ONETIME ONE Administration Sodium Chloride 1,000 mls @ 999 mls/hr 05/26/18 21:36 05/26/18 21:37 Normal Saline IV 05/26/18 22:36 999 mls/hr .BOLUS ONE Administration Departure - Departure Time of Disposition: 22:59 Disposition: Home, Self-Care 01 Condition: Fair Clinical Impression: Nonspecific chest pain Instructions: Nonspecific Chest Pain, [id number] Forms: ED Department Discharge Care Plan Goals: The patient was advised of the examination, lab, EKG and x-ray results during the visit. The patient was encouraged to monitor her intake. If the patient has any additional symptoms or concerns, the patient should either return to the emergency department or visit her primary care facility. - My Orders Last 24 Hours: My Active Orders 05/26/18 19:35 EKG Documentation Completion [RC] URGENT 05/26/18 22:16 Potassium Chloride [KCl 10 MEQ in Water 100 ML] 10 meq Premix Bag 1 bag IV ONETIME - Assessment/Plan Last 24 Hours: My Active Orders 05/26/18 19:35 EKG Documentation Completion [RC] URGENT 05/26/18 22:16 Potassium Chloride [KCl 10 MEQ in Water 100 ML] 10 meq Premix Bag 1 bag IV ONETIME
[2018-05-26] MEDS ORDERED: GI Cocktail Oral Solution 30 ML PO ONE (20:41)
[2018-05-26] MEDS ORDERED: Sodium Chloride 0.9% 1,000 ML IV ONE ×2 (21:36→22:45)
[2018-05-26] MEDS ORDERED: Potassium Chloride 10 MEQ in Premix Bag 1 BAG IV ONE (22:16)
== END 2018-05-26 23:16 | disposition home or self-care (01) ==
LOC: DL.ED 20:13
DX: R07.2 Precordial pain (principal); F31.9 Bipolar disorder, unspecified; F17.210 Nicotine dependence, cigarettes, uncomplicated; Z88.5 Allergy status to narcotic agent; Z88.8 Allergy status to other drugs, medicaments and biological substances; Z79.899 Other long term (current) drug therapy
CPT/HCPCS: 36415; 71045; 80053; 80305; 81001; 84484; 85025; 85379; 85610; 93005; 96361; 96365; 96375; 99285; A9270; J1170; J1200; J3480; J7030; 51701

== ENCOUNTER 2024-08-27 13:01 | Emergency (ER) | payer MEDICAID ==
[2024-08-27 14:01] LABS: BASOPHILS PERCENT AUTO 0.6 % (0.0-1.0); EOSINOPHILS PERCENT AUTO 2.9 % (1.0-3.0); HEMATOCRIT 35.2 % (37.0-47.0); HEMOGLOBIN 11.7 g/dL (12.0-16.0); LYMPHOCYTES PERCENT AUTO 34.4 % (20.5-50.1); MEAN CORPUSCULAR HEMOGLOBIN 31.2 pg (27.0-34.0); MEAN CORPUSCULAR HGB CONC 33.2 g/dL (33.0-35.0); MEAN CORPUSCULAR VOLUME 93.9 fL (80-100); MONOCYTES PERCENT AUTO 6.2 % (2-8); NEUTROPHILS PERCENT AUTO 55.9 % (42.2-75.2); PLATELET COUNT,PLT 212 10^3/uL (150-450); RED BLOOD CELL COUNT 3.75 10^6/uL (4.2-5.4); WHITE BLOOD CELL COUNT,WBC 6.5 10^3/uL (5.0-10.0)
[2024-08-27 14:16] LABS: ANION GAP 13.8 mEq/L (7-13); CREATININE 0.74 mg/dL (0.55-1.02); EST CRCL DRUG DOSING (CG) 71.64 mL/min; POTASSIUM,K 3.8 mmol/L (3.5-5.1)
[2024-08-27 14:34] VITALS: BP 115/95; PULSE 76
== END 2024-08-27 14:36 | disposition home or self-care (01) ==
LOC: DL.ED 13:01
DX: M62.830 Muscle spasm of back (principal); F17.210 Nicotine dependence, cigarettes, uncomplicated; Z88.5 Allergy status to narcotic agent; Z88.8 Allergy status to other drugs, medicaments and biological substances; Z79.899 Other long term (current) drug therapy
CPT/HCPCS: 36415; 80048; 85025; 93005; 99285